=== PATIENT | female | born 1985 | race Caucasian/White ===

== ENCOUNTER → 2020-12-26 | Outpatient (CLI) | payer OTHER ==
[~2020-12-26] MED LIST: MULVITMINE
[2020-12-27 11:02] LABS: Candida species (DNA Probe) Negative (NEGATIVE); G. vaginalis (DNA Probe) Negative (NEGATIVE); T. vaginalis (DNA Probe) Negative (NEGATIVE)
[2020-12-27 14:08] LABS: HPV 16 Negative (Negative); HPV 18 Negative (Negative); HPV OTHER HR TYPES Negative (Negative)
[2020-12-28 10:10] LABS: CHLAMYDIA BY NAA Negative (Negative); GONOCOCCUS BY NAA Negative (Negative); TRICH VAG BY NAA Negative (Negative)
== END | disposition home or self-care (01) ==
LOC: LAB SHORT 17:57 → LAB 17:57
PROVIDERS: Family Medicine
DX: Z12.4 Encounter for screening for malignant neoplasm of cervix (principal); N89.8 Other specified noninflammatory disorders of vagina
CPT/HCPCS: 87480; 87491; 87510; 87591; 87624; 87660; 87661; G0123

== ENCOUNTER → 2021-12-12 | Outpatient (CLI) | payer OTHER | END | disposition home or self-care (01) | LOC: LAB 11:12 → LAB SHORT 11:12 | DX: R11.0 Nausea (principal) | CPT/HCPCS: 87338 ==

== ENCOUNTER 2022-10-17 08:09 | Day surgery (SDC) | payer OTHER ==
[~2022-10-17] VITALS: Ht 172.7 cm; Wt 78.1 kg
[2022-10-17 09:29] VITALS: BP 115/74
== END 2022-10-17 09:48 | disposition home or self-care (01) ==
LOC: ORSCSDS 08:09 → ORD 09:00 → ORSCSDS 09:48
DX: R11.0 Nausea (principal); F17.210 Nicotine dependence, cigarettes, uncomplicated
CPT/HCPCS: 88305; 88342; J2704; J7120

== ENCOUNTER 2025-01-07 07:32 | Emergency (ER) | payer OTHER ==
[~2025-01-07] VITALS: Ht 172.7 cm; Wt 72.6 kg
[2025-01-07] MEDS ORDERED: Ondansetron HCl 2 MG / ML 2ML Vial IV ONE (08:20)
[2025-01-07 08:46] LABS: Source, Urine Clean Catch
[2025-01-07 08:57] LABS: BASOPHILS ABSOLUTE AUTO 0.02 K/mm3 (0.00-0.23); BASOPHILS PERCENT AUTO 0 % (0-2); EOSINOPHILS ABSOLUTE AUTO 0.04 K/mm3 (0.00-0.68); EOSINOPHILS PERCENT AUTO 0 % (0-6); Hematocrit 34.8 % (33.0-51.0); Hemoglobin 11.6 g/dL (11.5-16.0); IMMATURE GRAN ABSOLUTE AUTO 0.03 K/mm3 (0.00-0.10); IMMATURE GRAN PERCENT AUTO 0 % (0-1); LYMPHOCYTES ABSOLUTE AUTO 0.48 K/mm3 (0.84-5.20); LYMPHOCYTES PERCENT AUTO 5 % (21-46); MONOCYTES ABSOLUTE AUTO 0.72 K/mm3 (0.16-1.47); MONOCYTES PERCENT AUTO 7 % (4-13); Mean Corpuscular HGB Conc 33.3 g/dL (31.5-36.5); Mean Corpuscular Volume 83 fL (80-100); NEUTROPHILS ABSOLUTE AUTO 8.82 K/mm3 (1.96-9.15); NEUTROPHILS PERCENT AUTO 87 % (41-73); NRBC ABSOLUTE 0.00 K/mm3 (0.00-0.02); NRBC Auto 0.0 /100 WBC (0.0-0.2); Platelet Count 268 K/mm3 (150-400); RDW Coefficient Variation 12.7 % (11.7-14.2); RDW Standard Deviation 38.4 fL (35.1-46.3)
[2025-01-07 09:00] LABS: Bilirubin, Urine Neg (Neg); Color, Urine Yellow (P-Yellow); Glucose Qualitative, Urine Neg (Neg); Ketones, Urine 1+ (Neg); Leukocyte Esterase, Urine 1+ (Neg); Protein, Urine Neg (Neg); Specific Gravity, Urine 1.005 (1.003-1.022); Urobilinogen, Urine NORM (Normal)
[2025-01-07 09:11] LABS: Red Blood Cells, Urine 0-2 /hpf (0-2)
[2025-01-07 09:44] LABS: Alanine Aminotransfer (ALT/SGP 26.0 U/L (12-78); Albumin, Blood 3.7 g/dL (3.4-5.0); Albumin/Globulin Ratio 1.2 (0.8-1.8); Anion Gap 8.0 mmol/L (3-11); Aspartate Aminotrans (AST/SGOT 12.0 U/L (12-37); Bilirubin, Direct 0.2 mg/dL (0.0-0.3); Bilirubin, Indirect 0.5 mg/dL (0.1-0.7); Bilirubin, Total 0.7 mg/dL (0.1-1.0); Blood Urea Nitrogen 10.0 mg/dL (8-24); CO2, Blood 26.0 mmol/L (21-32); Calcium, Blood 8.3 mg/dL (8.5-10.1); Chloride, Blood 105.0 mmol/L (98-108); Creatinine, Blood 0.8 mg/dL (0.40-1.00); Globulin, Blood 3.2 g/dL (2.2-4.0); Glucose, Blood 116.0 mg/dL (70-99); Potassium, Blood 3.7 mmol/L (3.5-5.5); Sodium, Blood 135.0 mmol/L (136-145); Total Protein, Blood 6.9 g/dL (6.4-8.2)
[2025-01-07] MEDS ORDERED: NS 1,000 ML IV SCH (10:30)
[2025-01-07] MEDS ORDERED: Ketorolac Tromethamine 15mg Vial IV ONE (11:35)
[2025-01-07] MEDS ORDERED: Robaxin750 MG PO (11:35)
[2025-01-07] MEDS ORDERED: ONDA4ODT MM (11:35)
[2025-01-07 12:10] VITALS: BP 100/58
== END 2025-01-07 12:09 | disposition home or self-care (01) ==
LOC: ER 07:32
PROVIDERS: Emergency Medicine
DX: K52.9 Noninfective gastroenteritis and colitis, unspecified (principal)
CPT/HCPCS: 74174; 80048; 80076; 81001; 81025; 83690; 85025; 96374-59; 96375; 99284-25; A9270; J1885; J2405; J7030; Q9967

== ENCOUNTER 2025-02-05 09:31 | Day surgery (SDC) | payer OTHER ==
[~2025-02-05] VITALS: Ht 172.7 cm; Wt 70.4 kg
[2025-02-05] VITALS (17 sets, daily range): BP systolic 88–141; BP diastolic 50–112
[~2025-02-05 09:31] MED LIST changes: +ONDA4ODT MM; +Robaxin750 MG PO
--- NOTE | 2025-02-05 10:08 | NUR ---
History, Chart, Medications and Allergies reviewed before start of procedure. Patient confirms NPO status and agrees with scheduled surgery. Pre-Op teaching done. Pt verbalizes understanding. Patient states colon prep results clear. Patient States Post-Procedure ride home has been arranged. Lungs clear T/O to Auscultation.
--- NOTE | 2025-02-05 10:11 | NUR ---
02/05/25 [id number] Savanah Denson [employer] COLONOSCOPE SERIAL NUMBER [id number], GREEN/YELLOW
[2025-02-05] MEDS ORDERED: Midazolam HCl 1MG / ML 2ML Vial ONE (10:54)
--- NOTE | 2025-02-05 11:40 | NUR ---
Patient States Post-Procedure ride home has been arranged. Discharged via wheelchair to private car for ride home. Discharge instructions reviewed with patient. Patient verbalizes understanding. Copy given to patient to take home.
== END 2025-02-05 23:00 | disposition home or self-care (01) ==
LOC: ORSCMMR 09:31 → ORD 10:30 → ORSCMMR 10:30
PROVIDERS: Internal Medicine Gastroenterology
PROC: 0DJD8ZZ Inspection of Lower Intestinal Tract, Via Natural or Artificial Opening Endoscopic (ICD-10-PCS; principal; 2025-02-05 10:30)
DX: R93.5 Abnormal findings on diagnostic imaging of other abdominal regions, including retroperitoneum (principal); F17.210 Nicotine dependence, cigarettes, uncomplicated
CPT/HCPCS: J0461; J2250; J2704; J7120